=== PATIENT | male | born 1925 | race Caucasian/White ===

== ENCOUNTER 2017-01-15 10:47 | Emergency (ER) | payer MEDICARE, BC ==
--- NOTE | 2017-01-15 11:27 | EDM.PDOC ---
ED HPI GENERAL MEDICAL PROBLEM - General Chief Complaint: Back Pain or Injury Stated Complaint: CHEST/BACK PAIN Time Seen by Provider: 01/15/17 11:13 Source of Information: Reports: Patient, RN, RN Notes Reviewed History Limitations: Reports: No Limitations - History of Present Illness INITIAL COMMENTS - FREE TEXT/NARRATIVE: Patient presents to the ED at [facility] after he feel at home yesterday. Patient states "I just fell for no reason, I did not trip on anything." Patient complains of lower thoracic back pain. No previous injury or trauma. No radiation of the pain. Patient states he also feels some chest pain since his fall. Onset Date: 01/14/17 Duration: Waxing/Waning Location: Reports: Chest, Back - Related Data Allergies Allergy/AdvReac Type Severity Reaction Status Date / Time No Known Drug Allergies Allergy Other Verified 01/15/17 11:12 Home Meds: Home Meds Simvastatin [Zocor] 0.5 tab PO BEDTIME 05/13/14 [History] Carvedilol [Coreg] 12.5 mg PO BIDM #60 tablet 05/21/14 [Rx] Aspirin 325 mg PO DAILY 07/25/16 [History] Lisinopril 10 mg PO DAILY 07/25/16 [History] Temazepam [Temazepam] 1 tab PO BEDTIME PRN 07/25/16 [History] Past Medical History HEENT History: Reports: Hard of Hearing Cardiovascular History: Reports: Afib, CAD, High Cholesterol, Hypertension, [place] Gastrointestinal History: Reports: Diverticulosis, Hemorrhoids Genitourinary History: Reports: Prostate Disorder Other Oncologic History: 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 - Past Surgical History HEENT Surgical History: Reports: Cataract Surgery GI Surgical History: Reports: Appendectomy, Hernia, Inguinal Social & Family History - Tobacco Use Smoking Status *Q: Unknown Ever Smoked Years of Tobacco use: 40 Used Tobacco, but Quit: Yes Month Tobacco Last Used: 40years Second Hand Smoke Exposure: No - Alcohol Use Days Per Week of Alcohol Use: 7 Number of Drinks Per Day: 2 Total Drinks Per Week: 14 - Recreational Drug Use Recreational Drug Use: No ED ROS GENERAL - Review of Systems Review Of Systems: See Below Constitutional: Denies: Fever, Chills, Weakness Respiratory: Denies: Shortness of Breath, Cough Cardiovascular: Reports: Chest Pain. Denies: Palpitations GI/Abdominal: Denies: Abdominal Pain, Nausea, Vomiting Musculoskeletal: Reports: Muscle Pain, Muscle Stiffness Skin: Reports: No Symptoms Neurological: Reports: No Symptoms. Denies: Headache, Numbness, Paresthesia, Tingling ED EXAM,LOWER BACK PAIN/INJURY - Physical Exam Exam: See Below Exam Limited By: No Limitations General Appearance: Alert, No Apparent Distress Eye Exam: Bilateral Eye: Normal Inspection, PERRL Head: Atraumatic, Normocephalic Neck: Supple Respiratory/Chest: No Respiratory Distress, Lungs Clear, Normal Breath Sounds Cardiovascular: Regular Rate, Rhythm GI/Abdominal: Normal Bowel Sounds, Soft, Non-Tender Back Exam: Muscle Spasm, Paraspinal Tenderness Extremities: Normal Inspection Neurological: Alert, Oriented x 3 Skin Exam: Warm, Dry, Intact, Normal Color, No Rash EKG INTERPRETATION EKG Date: 01/15/17 Time: 10:56 Rhythm: NSR Rate (beats/min): 68 [place]: normal P-wave: present QRS: normal ST-T: normal QT: normal SD/PQ Interval: 0.19 Comparison: NA - no prior EKG EKG Interpretation Comments: Sinus Rhythm with PVC's Left anterior fascicular block Anteroseptal MS Course - Vital Signs Last Recorded V/S: Last Vital Signs Temp 36.0 C 01/15/17 10:55 Pulse 64 01/15/17 12:39 Resp 14 01/15/17 12:39 BP 148/85 H 01/15/17 12:39 Pulse Ox 96 01/15/17 12:39 - Orders/Labs/Meds Orders: Active Orders 24 hr Category Date Time Status EKG 12 Lead [EKG Documentation Completion] [RC] STAT Care 01/15/17 11:23 Active Chest 2V [CR] Stat Exams 01/15/17 11:21 Taken Thoracic Spine wo Cont [CT] Stat Exams 01/15/17 12:22 Taken Labs: Laboratory Tests 01/15/17 01/15/17 Range/Units 11:34 11:34 WBC 8.7 (4.0-10.0) x10^3/uL RBC 4.30 L (4.5-6.0) x10^6/uL Hgb 14.3 (14.0-18.0) g/dL Hct 40.3 (40.0-52.0) % MCV 93.7 H (78.0-93.0) fL MCH 33.3 H (26.0-32.0) pg MCHC 35.5 (32.0-36.0) g/dL RDW Coeff of Dada 13.2 (10.0-15.0) % Plt Count 141 (130-400) x10^3/uL Neut % (Auto) 74.6 (50.0-80.0) % Lymph % (Auto) 13.6 L (25.0-50.0) % [place] % (Auto) 11.4 H (2.0-11.0) % Eos % (Auto) 0.3 (0.0-4.0) % Baso % (Auto) 0.1 L (0.2-1.2) % Sodium 132 L (136-145) mmol/L Potassium 5.1 (3.5-5.1) mmol/L Chloride 98 (98-107) mmol/L Carbon Dioxide 27 (21-32) mmol/L BUN 14 (7-18) mg/dL Creatinine 1.0 (0.70-1.30) mg/dL Est Cr Clr Drug Dosing TNP Estimated GFR (MDRD) > 60 Glucose 119 H (74-106) mg/dL Calcium 9.1 (8.5-10.1) mg/dL Creatine Kinase 132 (39-308) U/L Creatine Kinase Index 1.1 (0.0-4.0) % CK-MB (CK-2) 1.4 (0.0-3.6) ng/mL Troponin I 0.034 (<=0.056) ng/mL - Radiology Interpretation Free Text/Narrative:: 01/15/2017 12:14 CXR 2V: New mild lower thoracic compression fractures about T8 and T10 are suggested 01/15/2017 13:52 1. A mild acute T8 compression fracture is possible pathologic. An MRI of the thoracic spine would be suggested at some point for further eval. 2. Acute nondisplaced left L1 and L2 transverse process fracture 3. Mildly dilated debris-filled esophagus. Consider esophagram or EGD to eval for refulx versus distal obstruction CT Results Date: 01/15/17 CT Results Time: 13:52 Departure - Departure Time of Disposition: 14:42 Disposition: Home, Self-Care 01 Condition: good Clinical Impression: T10 vertebral fracture Qualifiers: Encounter type: initial encounter Fracture type: closed Fracture morphology: wedge compression Qualified Code(s): S22.070A - Wedge compression fracture of T9 -T10 vertebra, initial encounter for closed fracture L1 vertebral fracture Qualifiers: Encounter type: initial encounter Fracture type: closed Fracture morphology: unspecified fracture morphology Qualified Code(s): S32.019A - Unspecified fracture of first lumbar vertebra, initial encounter for closed fracture L2 vertebral fracture Qualifiers: Encounter type: initial encounter Fracture type: closed Fracture morphology: unspecified fracture morphology Qualified Code(s): S32.029A - Unspecified fracture of second lumbar vertebra, initial encounter for closed fracture - Discharge Information Instructions: Transverse Process Fracture, Spinal Compression Fracture Referrals: Cindy Sorto PA-C [Primary Care Provider] - Forms: ED Department Discharge Additional Instructions: 1. Stay well hydrated and rest 2. Take Tramadol 1/2 tablet as needed for severe pain 3. Keep appointment with Cindy Sorto this week 4. Neurosurgery recommend a Thoracic MRI with contrast to be ordered by PCP 5. Discuss findings with OT and PT 6. Call or return for any questions/concerns ED Communication - ED Communication Date/Time Date: 01/15/17 Time Called: 14:20 - Discussed Case With (1) Discussed Case With (1): Outpatient Provider (Dr. Mata, Neurosurgery) - Conversation Summary Patient Aware of Amendments fo Care Plan: Yes Patient's POA/Guardian Aware of Amendments to Care Plan: Yes Summary Comment: Case discussed with Neurosurgery. No brace recommended. No surgery warranted. Patient to see PCP this week for MRI and follow up. Xray Thoracic spine in 3-4 weeks to check progression. - Problem List Review Problem List Initiated/Reviewed/Updated: Yes - My Orders Last 24 Hours: My Active Orders 01/15/17 11:21 Chest 2V [CR] Stat 01/15/17 11:23 EKG 12 Lead [EKG Documentation Completion] [RC] STAT 01/15/17 12:22 Thoracic Spine wo Cont [CT] Stat - Assessment/Plan Last 24 Hours: My Active Orders 01/15/17 11:21 Chest 2V [CR] Stat 01/15/17 11:23 EKG 12 Lead [EKG Documentation Completion] [RC] STAT 01/15/17 12:22 Thoracic Spine wo Cont [CT] Stat
[2017-01-15 12:10] LABS: CHLORIDE,CL 98 mmol/L (98-107); SODIUM,NA 132 mmol/L (136-145)
[2017-01-15 12:40] VITALS: BP 148/85
[2017-01-15] MEDS ORDERED: Take Home: traMADol 50 MG, 4 Tab Pack PO ONE (14:46)
== END 2017-01-15 14:58 | disposition home or self-care (01) ==
LOC: VM.ED 10:47
DX: S22.070A Wedge compression fracture of T9-T10 vertebra, initial encounter for closed fracture (principal); S32.019A Unspecified fracture of first lumbar vertebra, initial encounter for closed fracture; S32.029A Unspecified fracture of second lumbar vertebra, initial encounter for closed fracture; Z79.899 Other long term (current) drug therapy; I48.91 Unspecified atrial fibrillation; I25.10 Atherosclerotic heart disease of native coronary artery without angina pectoris; E78.00 Pure hypercholesterolemia, unspecified; I10 Essential (primary) hypertension; I25.2 Old myocardial infarction; W19.XXXA Unspecified fall, initial encounter; Z90.49 Acquired absence of other specified parts of digestive tract; Z98.49 Cataract extraction status, unspecified eye; Z79.82 Long term (current) use of aspirin
CPT/HCPCS: 36415; 71020; 72128; 80048; 82550; 82553; 84484; 85025; 93005; 99284; A9270

== ENCOUNTER 2017-01-16 10:02 | Emergency (ER) | payer MEDICARE, BC ==
--- NOTE | 2017-01-16 10:43 | EDM.PDOC ---
ED HPI GENERAL MEDICAL PROBLEM - General Stated Complaint: ER Time Seen by Provider: 01/16/17 10:15 Source of Information: Reports: Patient, EMS, EMS Notes Reviewed, Family, Old Records - History of Present Illness INITIAL COMMENTS - FREE TEXT/NARRATIVE: patient ws having too much pain at home so he called ambulance to get him and bring to ER Onset: Other (yesterday was seen in ER for pain and diagnosed with vertebral compression fracture.) Duration: Hour(s):, Getting Worse Location: Reports: Back Quality: Reports: Same as Previous Episode Severity: Severe Improves with: Reports: None Worsens with: Reports: Movement Context: Reports: Activity Associated Symptoms: Reports: No Other Symptoms Treatments SAWYER [place]ORK SLABS: Reports: Other (see below) (tramadol) - Related Data Allergies Allergy/AdvReac Type Severity Reaction Status Date / Time No Known Drug Allergies Allergy Other Verified 01/15/17 11:12 Home Meds: Home Meds Simvastatin [Zocor] 0.5 tab PO BEDTIME 05/13/14 [History] Carvedilol [Coreg] 12.5 mg PO BIDM #60 tablet 05/21/14 [Rx] Aspirin 325 mg PO DAILY 07/25/16 [History] Lisinopril 10 mg PO DAILY 07/25/16 [History] Temazepam [Temazepam] 1 tab PO BEDTIME PRN 07/25/16 [History] Past Medical History HEENT History: Reports: Hard of Hearing Cardiovascular History: Reports: Afib, CAD, High Cholesterol, Hypertension, [place] Gastrointestinal History: Reports: Diverticulosis, Hemorrhoids Genitourinary History: Reports: Prostate Disorder Other Oncologic History: 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 - Past Surgical History HEENT Surgical History: Reports: Cataract Surgery GI Surgical History: Reports: Appendectomy, Hernia, Inguinal Social & Family History - Tobacco Use Smoking Status *Q: Unknown Ever Smoked Years of Tobacco use: 40 Used Tobacco, but Quit: Yes Month Tobacco Last Used: 40years Second Hand Smoke Exposure: No - Alcohol Use Days Per Week of Alcohol Use: 7 Number of Drinks Per Day: 2 Total Drinks Per Week: 14 - Recreational Drug Use Recreational Drug Use: No ED ROS GENERAL - Review of Systems Review Of Systems: See Below Constitutional: Reports: No Symptoms HEENT: Reports: No Symptoms Respiratory: Reports: No Symptoms Cardiovascular: Reports: No Symptoms Endocrine: Reports: No Symptoms GI/Abdominal: Reports: No Symptoms : Reports: No Symptoms Musculoskeletal: Reports: Joint Pain Skin: Reports: No Symptoms Neurological: Reports: No Symptoms Psychiatric: Reports: Other (family states worsening memory recently) Hematologic/Lymphatic: Reports: No Symptoms Immunologic: Reports: No Symptoms ED EXAM, GENERAL - Physical Exam Exam: See Below Exam Limited By: Other (hard of hearing and poor historian) General Appearance: Alert, WD/WN, Other (patient is comfortable as was given morphine 4 mg by ambulance crew. 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, pupil larger than left) , Bilateral Eye: EOMI Ears: Normal External Exam, Hearing Loss, Other (cerumen impaction bilat ears) Ear Exam: Bilateral Ear: Auricle Normal, Canal Normal Nose: Normal Inspection, Normal Mucosa Throat/Mouth: Normal Inspection, Other (poor dental hygiene) Head: Atraumatic, Normocephalic Neck: Normal Inspection, Supple, Non-Tender Respiratory/Chest: No Respiratory Distress, Lungs Clear, Normal Breath Sounds, Chest Non-Tender Cardiovascular: Normal Peripheral Pulses, Regular Rate, Rhythm, No Edema, No Murmur, No Rub Peripheral Pulses: 1+: Dorsalis Pedis (L), Dorsalis Pedis (R) GI/Abdominal: Normal Bowel Sounds, Soft, Non-Tender, No Organomegaly, No Distention Back Exam: Normal Inspection, Decreased Range of Motion, Vertebral Tenderness, Other (lower thoracic and upper lumbar) Extremities: Normal Inspection, No Pedal Edema Neurological: Alert, Other (poor historian, some recent memory loss per family) Psychiatric: Normal Affect, Normal Mood Skin Exam: Warm, Dry, Intact, Normal Color Lymphatic: No Adenopathy Course - Vital Signs Text/Narrative:: Patient was seen through ER yesterday by another provider and diagnosed with probable vertebral compression fractures, now has unmanageble pain in back and is unable to care for self at home. I contacted stone mill operator Dr King and we are going to arrange for further cares. group social worker visited with patient and family and he will be direct admit to [facility] for rehab. Departure - Departure Time of Disposition: 12:25 Disposition: DC/Tfer to [facility] [place] [facility] Condition: fair Clinical Impression: Vertebral compression fracture, Severe back pain - Discharge Information Referrals: Cindy Sorto PA-C [Primary Care Provider] - MLP Sign Off - Signature Requirements MLP Sign Off: Yes ED Communication - Discussed Case With (1) Discussed Case With (1): Admitting Provider (Dr King) - Discussed Case With (2) Discussed Case With (2): Admitting Provider (group social worker Melonie) - Problem List & Annotations (1) Severe back pain SNOMED Code(s): 325019104 Code(s): M54.9 - DORSALGIA, UNSPECIFIED Status: Acute Priority: High Current Visit: Yes (2) Vertebral compression fracture SNOMED Code(s): 79612419 Code(s): M48.50XA - COLLAPSED VERTEBRA, NEC, SITE UNSP, INIT Status: Acute Priority: High Current Visit: Yes Qualifiers: Encounter type: subsequent encounter
[2017-01-17 14:07] VITALS: BP 169/93
== END 2017-01-16 12:45 ==
LOC: VM.ED 10:02
DX: M48.55XA Collapsed vertebra, not elsewhere classified, thoracolumbar region, initial encounter for fracture (principal); I48.91 Unspecified atrial fibrillation; E78.00 Pure hypercholesterolemia, unspecified; I10 Essential (primary) hypertension; I25.2 Old myocardial infarction; H61.23 Impacted cerumen, bilateral; Z90.49 Acquired absence of other specified parts of digestive tract; Z98.49 Cataract extraction status, unspecified eye
CPT/HCPCS: 99283-GF; 99284